=== PATIENT | female | born 2000 | race Caucasian/White ===

== ENCOUNTER 2020-04-19 12:51 | Outpatient (REF) | payer OTHER, SELFPAY ==
[2020-04-20 08:47] LABS: BV Int Neg Control Negative (Negative); BV Int Pos Control Positive (Positive)
[2020-04-20 09:50] LABS: CT PCR NOT DETECTED (Not Detect.); NG PCR NOT DETECTED (Not Detect.)
== END 2020-04-19 12:52 | disposition home or self-care (01) ==
LOC: HO.LAB 12:51
PROVIDERS: Visit Provider Advanced Practice Midwife
DX: Z20.2 Contact with and (suspected) exposure to infections with a predominantly sexual mode of transmission (principal); N89.8 Other specified noninflammatory disorders of vagina; Z30.09 Encounter for other general counseling and advice on contraception; Z30.432 Encounter for removal of intrauterine contraceptive device
CPT/HCPCS: 87480; 87491; 87510; 87591; 87660; 99212

== ENCOUNTER → 2020-08-05 11:48 | Outpatient (BNVA) | payer OTHER, SELFPAY | PROVIDERS: Visit Provider Advanced Practice Midwife | DX: Z30.09 Encounter for other general counseling and advice on contraception (principal); N89.8 Other specified noninflammatory disorders of vagina | CPT/HCPCS: 81025; 99212 ==

== ENCOUNTER 2020-12-16 11:23 | Outpatient (REF) | payer OTHER, SELFPAY | END 2020-12-16 11:24 | disposition home or self-care (01) | LOC: HO.LAB 11:23 | PROVIDERS: Visit Provider Advanced Practice Midwife | DX: Z32.01 Encounter for pregnancy test, result positive (principal) | CPT/HCPCS: 36415; 81025; 84702; 99212 ==

== ENCOUNTER 2020-12-26 11:45 | Outpatient (REF) | payer OTHER, SELFPAY | END 2020-12-26 11:46 | disposition home or self-care (01) | LOC: HO.LAB 11:45 | PROVIDERS: Visit Provider Advanced Practice Midwife | DX: O46.90 Antepartum hemorrhage, unspecified, unspecified trimester (principal) | CPT/HCPCS: 36415; 84702; 86850; 86886; 86900; 86901 ==

== ENCOUNTER 2020-12-26 12:10 | Emergency (ER) | payer OTHER, SELFPAY ==
--- NOTE | ~2020-12-26 | US_ITS ---
EXAMINATION: US OBSTETRICAL ULTRASOUND CLINICAL INFORMATION: Early . Bleeding, cramping. COMPARISON: None. LMP: 10/26/2020. Gestational age by maternal dates is 8 weeks 5 days. Estimated date of delivery by maternal dates is 08/02/2021. TECHNIQUE: Ultrasound of the maternal pelvis is performed using transabdominal transducer. M-mode Doppler is also performed. FINDINGS: There is a single intrauterine gestational sac with visible yolk sac, embryo/fetus, and cardiac activity. There is small subchorionic hemorrhage measuring only 0.6 x 0.9 x 1.8 cm. HR: 163 beats per minute. CRL (crown rump length): 1.8 cm (8 weeks 3 days +/- 4 days). SUKUMAR (estimated date of delivery): 08/04/2021 +/- 4 days. MATERNAL ADNEXA: The right maternal ovary measures 3.6 x 2.0 x 2.5 cm. No right adnexal mass. The left maternal ovary measures 3.2 x 1.4 x 2.7 cm. There is an avascular unilocular anechoic cystic structure left adnexa possibly paraovarian cyst measuring 0.7 x 2.2 cm. Focal fluid left fallopian tube less likely. No maternal pelvic ascites. US/US OB <= 14 weeks fetus IMPRESSION: 1. Single intrauterine gestation with ultrasound gestational age of 8 weeks 3 days +/- 4 days. 2. Estimated date of delivery is 08/04/2021 +/- 4 days. 3. Small subchorionic hemorrhage 0.6 x 0.9 x 1.8 cm. 4. Probable left paraovarian cyst 0.7 x 2.2 cm. Fluid in left fallopian tube less likely. No pelvic ascites.
[2020-12-26 12:33] VITALS: BP 114/69; PULSE 82; RESP 18; TEMP 36.8; O2SAT 100; BMI 26.5
--- NOTE | 2020-12-26 13:05 | ED.PREGNANCY ---
HPI - General Chief complaint: Vaginal Bleeding Stated complaint: 7 week vag bleeding Time Seen by Provider: 12/26/20 13:03 Source: patient and old records reviewed Mode of arrival: ambulatory Limitations: no limitations History of Present Illness HPI Narrative: did have intercourse last night Complaint: vaginal bleeding Onset (ago): hour(s) (this AM) Pain Consistency: intermittent Location: pelvis Severity: mild Quality: Cramping Radiation: pelvis Relieving factors: none Exacerbating factors: none Associated symptoms: denies other symptoms Vaginal bleeding: light (2 pads this AM no clots) OB History - Previous Pregnancies: no complications care: followed by OB Related Data Home Medications Medication Instructions Recorded Confirmed prenat.vits,mani,[id number] 1 tab PO DAILY 12/16/20 12/16/20 Allergies Allergy/AdvReac Type Severity Reaction Status Date / Time No Known Allergies Allergy Verified 12/26/20 12:33 Review of Systems Review of Systems: Constitutional : No Fever, No Chills ENT/Mouth : No sore throat, No Rhinorrhea Eyes: No Eye Pain, No Redness Cardiovascular : No Chest Pain, No SOB Respiratory : No Cough, No Sputum, No Wheezing Gastrointestinal : no Nausea, No Vomiting, No Diarrhea, positive abdominal pain, Genitourinary : positive irregular bleeding, No Dysuria, No Urinary Frequency, positive pelvic pain Musculoskeletal : No Myalgias Skin : No rash Neuro : No Weakness, No Headache Psych : No Anxiety/Panic, No Depression Heme/Lymph: No bruising, No Lymphadenopathy Endocrine : No Polyuria, No Polydipsia All other systems reviewed and are negative PMFSH Past Medical History Attestation statement: The following information was validated with the patient. Medical History No active medical problems Family History Family History Maternal Grandmother Breast CA Social History Social History (Updated 12/26/20 @ 13:19 by Shyann Du DO) Alcohol intake: never Patient Tobacco Use Status: Never used Tobacco Use of substances other than those prescribed or required for medical reasons: No Advance Directives: No Advance Directives Information Provided: Yes Patient : Yes Gender identity: female Physical Exam Vital Signs: Vital Signs: Last Vital Signs Temp 98.2 F 12/26/20 12:33 Pulse 75 12/26/20 13:30 Resp 16 12/26/20 13:30 BP 121/65 12/26/20 13:30 Pulse Ox 99 12/26/20 13:30 Body Mass Index 26.5 Appearance: Alert. Oriented X3. No acute distress. Eyes: Pupils equal, round and reactive to light. ENT: Pharynx normal. Neck: Normal inspection. Neck supple. CVS: Normal heart rate and rhythm. Pulses normal. Respiratory: No respiratory distress. Breath sounds normal. Abdomen: Soft and nontender. : os closed scant darker blood noted Skin: Skin warm and dry. Normal skin color. Normal skin turgor. Extremities: No lower extremity edema. No calf ttp Neuro: Oriented X 3. No motor deficit. No sensory deficit. Course Course Course Narrative: blood type A POS quant increasing bleeding decreased brown now and mostly spotting MDM - OB/Uterine Contractions MDM Narrative Medical decision making narrative: 20 yo female 7 weeks based off LMP seen by OB - c/o 2 pads of blood at this time, no clots or tissues, did have intercourse yesterday - quant and Rh status sent off by OB this AM, will complete with CBC and US - dispo per results and findings. Lab Data Result diagrams: 12/26/20 13:29 12/26/20 13:29 Labs: Lab Results 12/26/20 12/26/20 12/26/20 Range/Units 13:29 13:29 13:29 WBC 8.3 (4.8-10.8) X10*3/uL RBC 4.18 L (4.20-5.50) X10*6/uL Hgb 12.0 (12.0-16.0) g/dl Hct 35.6 L (37-47) % MCV 85.2 (80-98) fL MCH 28.7 (27.0-33.0) pg MCHC 33.7 (31.0-35.0) g/dl RDW 13.1 (11.0-16.0) % Plt Count 312 (160-400) X10*3/uL MPV 10.0 (9.4-12.3) fL Immature Gran % (Auto) 0.2 (0.0-0.4) % Neut % (Auto) 69.6 (45-73) % Lymph % (Auto) 19.4 L (20-40) % [place] % (Auto) 8.9 (2-11) % Eos % (Auto) 1.3 (0-4) % Baso % (Auto) 0.6 (0-2) % Lymph # (Auto) 1.6 (1.2-4.9) X10*3/uL [place] # (Auto) 0.7 (0.1-1.2) X10*3/uL Eos # (Auto) 0.1 (0.0-0.4) X10*3/uL Baso # (Auto) 0.1 (0.0-0.2) X10*3/uL Abs Immat Gran (auto) 0.02 (0.00-0.03) X10*3/uL Absolute Neuts (auto) 5.8 (2.0-8.3) X10*3/uL Absolute Nucleated RBC 0.000 (0.0-0.012) X10*3/uL Nucleated RBC % (auto) 0.0 (0.0-0.2) /100WBC PT 11.9 (9.9-13.0) SEC INR 1.0 (0.9-1.1) APTT 27.1 (24.1-38.0) SEC Sodium 136 (135-145) mmol/L Potassium 3.7 (3.3-5.1) mmol/L Chloride 104 (96-108) mmol/L Carbon Dioxide 22 (22-29) mmol/L Anion Gap 14 (12-20) BUN 12 (9-16) mg/dL Creatinine 0.70 (0.5-1.4) mg/dL Estim Creat Clear Calc 117.6 Estimated GFR > 60 Random Glucose 87 (60-115) mg/dL Calcium 9.7 (8.4-10.2) mg/dL Total Bilirubin 0.4 (0.0-1.0) mg/dL Direct Bilirubin 0.2 (0.0-0.5) mg/dL AST 21 (5-31) U/L ALT 23 (0-31) U/L Alkaline Phosphatase 75 (39-117) U/L Total Protein 7.2 (6.5-8.0) g/dL Albumin 4.2 (3.5-5.0) g/dL Discharge Plan Discharge Clinical Impression: Subchorionic hematoma Patient Disposition: Home, Self-Care Instructions: Subchorionic Hemorrhage (ED) Additional Instructions: return to ED for any worsening symptoms or concerns pelvic rest - no intercourse until symptoms resolve in likely a week follow up with your OB in 2 days for repeat testing and evaulation 1. Single intrauterine gestation with ultrasound gestational age of 8 weeks 3 days +/- 4 days. 2. Estimated date of delivery is 08/04/2021 +/- 4 days. 3. Small subchorionic hemorrhage 0.6 x 0.9 x 1.8 cm. 4. Probable left paraovarian cyst 0.7 x 2.2 cm. Fluid in left fallopian tube less likely. No pelvic ascites. Prescriptions: No Action prenat.vits,mani,[id number] Tablet 1 tab PO DAILY RF: 0 Stand Alone Forms: Work/School Release
[2020-12-26 13:30] VITALS: BP 121/65; PULSE 75; RESP 16; O2SAT 99
--- NOTE | 2020-12-26 13:33 | PC.NURSE ---
Patient is ambulatory to the bathroom to void. Pt changing pad. Pad has a small amount of brown tinge blood on sanitary napkin. Patient has had pad on since 12 noon today.
--- NOTE | 2020-12-26 13:35 | PC.NURSE ---
Doctor notified of bloody discharge characteristics and amount on sanitary napkin. Pt continues to deny pain
[2020-12-26] MEDS: 0.9 % Sodium Chloride 1,000 ML 999 ML IVCONT (13:36)
[2020-12-26 13:41] LABS: MANUAL DIFF FLAG NO
[2020-12-26 13:42] LABS: Basophils Absolute Auto 0.1 X10*3/uL (0.0-0.2); Basophils Percent Auto 0.6 % (0-2); Eosinophils Absolute Auto 0.1 X10*3/uL (0.0-0.4); Eosinophils Percent Auto 1.3 % (0-4); Hematocrit 35.6 % (37-47); Imm Gran Abs Auto 0.02 X10*3/uL (0.00-0.03); Imm Gran Pct Auto 0.2 % (0.0-0.4); Lymphocytes Absolute Auto 1.6 X10*3/uL (1.2-4.9); Lymphocytes Percent Auto 19.4 % (20-40); Mean Corpuscular HGB Conc 33.7 g/dl (31.0-35.0); Mean Corpuscular Hemoglobin 28.7 pg (27.0-33.0); Mean Corpuscular Volume 85.2 fL (80-98); Monocytes Absolute Auto 0.7 X10*3/uL (0.1-1.2); Monocytes Percent Auto 8.9 % (2-11); Neutrophils Absolute Auto 5.8 X10*3/uL (2.0-8.3); Neutrophils Percent Auto 69.6 % (45-73); Platelet Count 312 X10*3/uL (160-400); Red Blood Count 4.18 X10*6/uL (4.20-5.50); Red Cell Distribution Width 13.1 % (11.0-16.0); White Blood Count 8.3 X10*3/uL (4.8-10.8)
[2020-12-26 13:48] LABS: Prothrombin Time 11.9 SEC (9.9-13.0)
[2020-12-26 13:50] LABS: Partial Thromboplastin Time 27.1 SEC (24.1-38.0)
[2020-12-26 14:28] LABS: Alanine Aminotransferase 23 U/L (0-31); Albumin Level 4.2 g/dL (3.5-5.0); Alkaline Phosphatase 75 U/L (39-117); Anion Gap 14 (12-20); Aspartate Amino Transferase 21 U/L (5-31); Bilirubin Direct 0.2 mg/dL (0.0-0.5); Bilirubin Total 0.4 mg/dL (0.0-1.0); Blood Urea Nitrogen 12 mg/dL (9-16); Calcium 9.7 mg/dL (8.4-10.2); Carbon Dioxide 22 mmol/L (22-29); Chloride 104 mmol/L (96-108); Creatinine Clr Calc Pharmacy 117.6; Estimated Glomerular Filt Rate > 60; Glucose Random 87 mg/dL (60-115); Potassium 3.7 mmol/L (3.3-5.1); Sodium 136 mmol/L (135-145); Total Protein 7.2 g/dL (6.5-8.0)
== END 2020-12-26 15:32 | disposition home or self-care (01) ==
PROVIDERS: Emergency Provider Emergency Medicine; PCP Family Medicine
DX: O20.8 Other hemorrhage in early pregnancy (principal); Z3A.01 Less than 8 weeks gestation of pregnancy
CPT/HCPCS: 36415; 76801; 80048; 80076; 85025; 85610; 85730; 96360; 99284

== ENCOUNTER 2020-12-27 | Outpatient (REF) | payer OTHER, SELFPAY | END 2020-12-27 00:01 | disposition home or self-care (01) | LOC: CF | PROVIDERS: Visit Provider Advanced Practice Midwife | DX: O46.8X1 Other antepartum hemorrhage, first trimester (principal); O41.8X10 Other specified disorders of amniotic fluid and membranes, first trimester, not applicable or unspecified; Z3A.00 Weeks of gestation of pregnancy not specified | CPT/HCPCS: 99212 ==

== ENCOUNTER 2020-12-27 12:08 | Outpatient (REF) | payer OTHER, SELFPAY ==
[2020-12-27 15:17] LABS: CT PCR NOT DETECTED (Not Detect.); NG PCR NOT DETECTED (Not Detect.)
[2020-12-28 09:23] LABS: BV Int Neg Control Negative (Negative); BV Int Pos Control Positive (Positive)
== END 2020-12-27 12:09 | disposition home or self-care (01) ==
LOC: HO.LAB 12:08
PROVIDERS: Visit Provider Advanced Practice Midwife
DX: O46.90 Antepartum hemorrhage, unspecified, unspecified trimester (principal)
CPT/HCPCS: 87480; 87491; 87510; 87591; 87660

== ENCOUNTER 2021-01-06 08:28 | Outpatient (REF) | payer OTHER, SELFPAY ==
--- NOTE | ~2021-01-06 | US_ITS ---
EXAMINATION: OBSTETRICAL ULTRASOUND, FIRST TRIMESTER HISTORY: 20-year-old at 10.2 weeks of gestation Vaginal spotting LMP: 10/26/2020 COMPARISON: 12/26/2020 TECHNIQUE: Real time transabdominal imaging with color and M-mode Doppler. FINDINGS: A single, live IUP CRL of 33 mm c/w 10.2wks is noted. Heart Rate: 165 beats per minute. Both maternal ovaries are seen and appear normal. Normal adnexa. Small subchorionic hemorrhage noted. Compared to prior exam, this appears stable. GESTATIONAL AGE: 1. GA from LMP: 10.2 wks 2. GA from AUA: 10.2 wks ESTIMATED DATE OF DELIVERY: 1. SUKUMAR from LMP: 08/02/2021 2. SUKUMAR from AUA: 08/02/2021 US/US OB <= 14 weeks fetus IMPRESSION: 1. A single live IUP 2. CRL consistent with 10.2 weeks confirming her SUKUMAR of 08/02/2021 3. Small resolving subchorionic hematoma This note was generated with a voice recognition program. Please excuse any errors which may have been overlooked during my review of this note. Sometimes these errors may affect the content or meaning of a given sentence.
== END 2021-01-06 08:29 | disposition home or self-care (01) ==
LOC: HO.US 08:28
PROVIDERS: Visit Provider Advanced Practice Midwife
DX: O41.8X10 Other specified disorders of amniotic fluid and membranes, first trimester, not applicable or unspecified (principal); O46.8X1 Other antepartum hemorrhage, first trimester
CPT/HCPCS: 76801

== ENCOUNTER 2021-01-27 10:13 | Outpatient (REF) | payer OTHER, SELFPAY ==
[2021-01-27 11:53] LABS: Hematocrit 37.7 % (37-47); Hemoglobin 12.5 g/dl (12.0-16.0); Mean Corpuscular HGB Conc 33.2 g/dl (31.0-35.0); Mean Corpuscular Hemoglobin 28.5 pg (27.0-33.0); Mean Corpuscular Volume 86.1 fL (80-98); Mean Platelet Volume 9.8 fL (9.4-12.3); Platelet Count 334 X10*3/uL (160-400); Red Blood Count 4.38 X10*6/uL (4.20-5.50); Red Cell Distribution Width 13.3 % (11.0-16.0); White Blood Count 7.9 X10*3/uL (4.8-10.8)
[2021-01-27 13:22] LABS: Amphetamine Screen Urine Not Detected (Not Detect); Barbiturates, Urine Not Detected (Not Detect); Cannabinoid Screen Urine Not Detected (Not Detect); Cocaine Screen Urine Not Detected (Not Detect); Fentanyl, urine Not Detected (Not Detect); Opiate Screen Urine Not Detected (Not Detect); Phencyclidine Screen Urine Not Detected (Not Detect)
[2021-01-27 13:23] LABS: Benzodiazepines Screen Urine Not Detected (Not Detect)
[2021-01-28 10:05] LABS: Syphilis Screen Nonreactive (Nonreactive)
[2021-01-28 21:26] LABS: Rubella IgG Antibody 7.52 Index
[2021-01-30 04:49] LABS: HBsAGNum1 0.14 S/CO (0.00-0.99); Hepatitis B Surface Antigen Negative (Negative); ~HepC Num1 0.09 S/CO (0.00-0.79); ~Hepatitis C Antibody Nonreactive (Nonreactive)
[2021-01-30 05:48] LABS: HIV AB/AG Nonreactive (Nonreactive); HIV Num 1 0.06 S/CO (0.00-0.99)
== END 2021-01-27 10:14 | disposition home or self-care (01) ==
LOC: HO.LAB 10:13
PROVIDERS: PCP Family Medicine; Visit Provider Advanced Practice Midwife
DX: Z32.01 Encounter for pregnancy test, result positive (principal); O26.841 Uterine size-date discrepancy, first trimester; Z3A.13 13 weeks gestation of pregnancy
CPT/HCPCS: 80307; 85027; 86762; 86780; 86787; 86803; 86850; 86900; 86901; 87086; 87340; 87389; 99212

== ENCOUNTER 2021-02-10 13:00 | Outpatient (REF) | payer OTHER, SELFPAY ==
[2021-02-11 11:01] LABS: BV Int Neg Control Negative (Negative); BV Int Pos Control Positive (Positive)
[2021-02-11 11:20] LABS: CT PCR NOT DETECTED (Not Detect.); NG PCR NOT DETECTED (Not Detect.)
== END 2021-02-10 13:01 | disposition home or self-care (01) ==
LOC: HO.LAB 13:00
PROVIDERS: PCP Family Medicine; Visit Provider Advanced Practice Midwife
DX: O41.8X90 Other specified disorders of amniotic fluid and membranes, unspecified trimester, not applicable or unspecified (principal); Z3A.15 15 weeks gestation of pregnancy
CPT/HCPCS: 81003; 87480; 87491; 87510; 87591; 87660; 88142; 99212

== ENCOUNTER 2021-03-03 12:24 | Outpatient (REF) | payer MEDICAID, SELFPAY ==
--- NOTE | ~2021-03-03 | US_ITS ---
EXAMINATION: US OBSTETRICAL CLINICAL INFORMATION: 20-year-old at the 18.2 weeks of gestation Screening for anomaly COMPARISON: 01/06/2021 TECHNIQUE: Real-time transabdominal ultrasound was performed using C1-5 megahertz transducer. FINDINGS: A single, active, fetus is seen in vertex presentation. The placenta is anterior without previa, and the amniotic fluid volume is wnl. MEASUREMENTS: 1. Biparietal Diameter: 4.2 cm; 18.6 wks 2. Occipital Frontal Diameter: 5.1 cm 3. Head Circumference: 15.3 cm; 18.3 wks 4. Abdominal Circumference: 12.3 cm; 18.0 wks 5. Femur Length: 2.8 cm; 18.4 wks 6. Humerus Length: 2.6 cm; 18.1 wks 7. Tibia Length: 2.5 cm; 18.6 wks 8. Ulna Length: 2.3 cm; 18.3 wks 9. Lateral ventricle: 0.7 cm 10. Cerebellum: 1.87 cm; 19.3 wks 11. Cisterna Magna: 0.38 cm 12. Nuchal Fold: 2.63 mm 13. Heart Rate: 144 beats per minute Rt ovary: normal Lt ovary: normal Cervical length 3.7 cm on T/A. GESTATIONAL AGE: 1. Established GA: 18.2 wks 2. GA from [facility]: 18.4 wks ESTIMATED DATE OF DELIVERY: 1. Established SUKUMAR: 08/02/2021 2. SUKUMAR from [facility]: 07/31/2021 ANATOMY: The visualized anatomy includes but not limited to: 1. Cranium: Normal 2. Intracranial anatomy: cavum septum pellucidi, lateral ventricles, choroid plexus, cerebellum, posterior fossa, third and fourth ventricles. 3. face: orbits, lip/palate, profile, nasal bone 4. Heart: four-chamber view of the heart, ventricular septum, foramen ovale, pulmonary vein, left and right outflow tracts, three-vessel view, 3 vessel trachea view, aortic and ductal arches, situs.. 5. Diaphragm: Normal 6. Abdominal wall: Normal 7. Cord Insertion: Normal 8. Spine: Cervical, thoracic, lumbar, sacral. 9. Stomach: Normal size and shape 10. Right Kidney: Normal 11. Left Kidney: Normal 12. 3 vessel cord: Normal 13. Upper extremity: Open hands, fifth digit. 14. Lower extremity: Tibia, fibula, bilateral feet. 15. Bladder: Normal 16. Genitalia: Female, patient not aware US/US OB /maternal detail IMPRESSION: 1. Single, living, intrauterine with appropriate biometry. 2. Normal survey DISCUSSION: I reviewed today's ultrasound findings. We discussed the limitations of ultrasound in diagnosing aneuploidy and other congenital abnormalities. I reviewed the differences between screening test and diagnostic test. Amniocentesis was discussed and declined. She was informed that the baseline incidence of congenital abnormalities is approximately 3-5%. Not all these conditions are diagnosable in utero. RECOMMENDATIONS: 1. Follow-up when necessary. Thank you for allowing me to participate in her care. Total time 20 minutes. The time spent was devoted to counseling the patient about the disease and diagnosis, coordinating care including reviewing her records, pertinent lab data and studies, as well as discussing diagnostic evaluation and workup, plan therapeutic interventions and future disposition of care. This includes any additional research needed to obtain further information in formulating the plan of care of this patient. This note was generated with a voice recognition program. Please excuse any errors which may have been overlooked during my review of this note. Sometimes these errors may affect the content or meaning of a given sentence.
== END 2021-03-03 12:25 | disposition home or self-care (01) ==
LOC: HO.US 12:24
PROVIDERS: PCP Family Medicine; Visit Provider Advanced Practice Midwife
DX: Z36.3 Encounter for antenatal screening for malformations (principal); O41.8X20 Other specified disorders of amniotic fluid and membranes, second trimester, not applicable or unspecified; O46.8X2 Other antepartum hemorrhage, second trimester
CPT/HCPCS: 76811

== ENCOUNTER → 2021-03-17 13:00 | Outpatient (BNVA) | payer OTHER, SELFPAY | PROVIDERS: Visit Provider Advanced Practice Midwife | DX: Z34.82 Encounter for supervision of other normal pregnancy, second trimester (principal); Z3A.20 20 weeks gestation of pregnancy | CPT/HCPCS: 99212 ==

== ENCOUNTER → 2021-04-05 09:53 | Outpatient (BNVA) | payer OTHER, SELFPAY | PROVIDERS: Visit Provider Advanced Practice Midwife | DX: O99.712 Diseases of the skin and subcutaneous tissue complicating pregnancy, second trimester (principal); B37.3 Candidiasis of vulva and vagina; Z3A.23 23 weeks gestation of pregnancy | CPT/HCPCS: 99212 ==

== ENCOUNTER 2021-05-05 09:45 | Outpatient (REF) | payer OTHER, SELFPAY ==
[2021-05-05 13:01] LABS: Hematocrit 34.9 % (37.0-47.0); Hemoglobin 11.3 g/dl (12.0-16.0); Mean Corpuscular HGB Conc 32.4 g/dl (31.0-35.0); Mean Corpuscular Hemoglobin 28.1 pg (27.0-33.0); Mean Corpuscular Volume 86.8 fL (80.0-98.0); Mean Platelet Volume 9.8 fL (9.4-12.3); Platelet Count 366 X10*3/uL (160-400); Red Blood Count 4.02 X10*6/uL (4.20-5.50); Red Cell Distribution Width 13.5 % (11.0-16.0); White Blood Count 11.4 X10*3/uL (4.8-10.8)
[2021-05-05 13:24] LABS: Glucose 1 Hour PP 50gm Dose 140 mg/dL (60-140)
[2021-05-05 13:51] LABS: Syphilis Screen Nonreactive (Nonreactive)
== END 2021-05-05 09:46 | disposition home or self-care (01) ==
LOC: HO.LAB 09:45
PROVIDERS: Visit Provider Advanced Practice Midwife
DX: Z34.92 Encounter for supervision of normal pregnancy, unspecified, second trimester (principal); Z3A.27 27 weeks gestation of pregnancy
CPT/HCPCS: 36415; 81003; 85027; 86780; 99212

== ENCOUNTER → 2021-05-19 13:32 | Outpatient (BNVA) | payer OTHER, SELFPAY | PROVIDERS: Visit Provider Advanced Practice Midwife | DX: Z34.83 Encounter for supervision of other normal pregnancy, third trimester (principal); Z3A.29 29 weeks gestation of pregnancy | CPT/HCPCS: 81003; 99212 ==

== ENCOUNTER 2021-05-26 12:36 | Outpatient (REF) | payer OTHER, SELFPAY ==
[2021-05-26 14:30] LABS: Glucose Fasting 65 mg/dL (60-99)
[2021-05-26 14:53] LABS: Glucose 1 Hour 142 mg/dL
[2021-05-26 15:30] LABS: Glucose 2 Hour 145 mg/dL
[2021-05-26 16:20] LABS: Glucose 3 Hour 133 mg/dL
== END 2021-05-26 12:37 | disposition home or self-care (01) ==
LOC: HO.LAB 12:36
PROVIDERS: Visit Provider Advanced Practice Midwife
DX: R73.09 Other abnormal glucose (principal)
CPT/HCPCS: 36415; 82951

== ENCOUNTER → 2021-06-12 10:54 | Outpatient (BNVA) | payer OTHER, SELFPAY | PROVIDERS: Visit Provider Obstetrics & Gynecology | DX: Z34.83 Encounter for supervision of other normal pregnancy, third trimester (principal); Z3A.32 32 weeks gestation of pregnancy | CPT/HCPCS: 81003; 99212 ==

== ENCOUNTER → 2021-06-29 10:55 | Outpatient (BNVA) | payer OTHER, SELFPAY | PROVIDERS: Visit Provider Obstetrics & Gynecology | DX: Z34.83 Encounter for supervision of other normal pregnancy, third trimester (principal); Z3A.35 35 weeks gestation of pregnancy | CPT/HCPCS: 99212 ==

== ENCOUNTER 2021-07-04 09:34 | Outpatient (REF) | payer OTHER, SELFPAY ==
[2021-07-04 11:09] LABS: Hematocrit 36.3 % (37.0-47.0); Hemoglobin 11.9 g/dl (12.0-16.0); Mean Corpuscular HGB Conc 32.8 g/dl (31.0-35.0); Mean Corpuscular Hemoglobin 27.5 pg (27.0-33.0); Mean Corpuscular Volume 83.8 fL (80.0-98.0); Mean Platelet Volume 9.8 fL (9.4-12.3); Platelet Count 335 X10*3/uL (160-400); Red Blood Count 4.33 X10*6/uL (4.20-5.50); Red Cell Distribution Width 13.9 % (11.0-16.0); White Blood Count 7.7 X10*3/uL (4.8-10.8)
[2021-07-04 12:18] LABS: Alanine Aminotransferase 42 U/L (0-31); Aspartate Amino Transferase 36 U/L (5-31); Blood Urea Nitrogen 11 mg/dL (9-16)
[2021-07-04 13:45] LABS: Creatinine Urine 59.59 mg/dL; Protein/Creatinine Ratio, Ur 0.17 (<0.2); Total Protein Urine Random 10 mg/dL (<12)
[2021-07-09 16:16] LABS: Chendeoxycholic Acid 5.9 umol/L (< OR = 3.9); Cholic Acid 11.6 umol/L (< OR = 2.8); Deoxycholic Acid <0.5 umol/L (< OR = 2.3)
== END 2021-07-04 09:35 | disposition home or self-care (01) ==
LOC: HO.LAB 09:34
PROVIDERS: Visit Provider Advanced Practice Midwife
DX: O99.713 Diseases of the skin and subcutaneous tissue complicating pregnancy, third trimester (principal); O26.893 Other specified pregnancy related conditions, third trimester; R51.9 Headache, unspecified; L29.9 Pruritus, unspecified; M54.50 Low back pain, unspecified
CPT/HCPCS: 36415; 59025; 81003; 82542; 84156; 84450; 84460; 84520; 85027; 99212

== ENCOUNTER 2021-07-07 10:59 | Outpatient (REF) | payer OTHER, SELFPAY ==
--- NOTE | ~2021-07-07 | US_ITS ---
EXAMINATION: OBSTETRICAL ULTRASOUND, Follow up HISTORY: 20-year-old at 36.2 weeks gestation Size date discrepancy Intrahepatic cholestasis of COMPARISON: 03/03/2021 TECHNIQUE: Real time transabdominal imaging with color and M-mode Doppler. PRESENTATION: Vertex PLACENTA LOCATION: Anterior without previa AMNIOTIC FLUID: JUDE 13 cm MEASUREMENTS: 1. Biparietal Diameter: 8.8 cm; 35.5 wks 2. Head Circumference: 32.5 cm; 36.6 wks 3. Abdominal Circumference: 32.0 cm; 36.0 wks 4. Femur Length: 7.2 cm; 36.5 wks 5. Heart Rate: 144 beats per minute WEIGHT: EFW: 2868 grams (6 lbs 5 oz) -- 49 %. BIOPHYSICAL PROFILE: Motion: 2 Tone: 2 Breathin Amniotic Fluid: 2 Total score: 8/8 GESTATIONAL AGE: 1. Established GA: 36.2 wks 2. GA from AUA: 36.3 wks ESTIMATED DATE OF DELIVERY: 1. Established SUKUMAR: 08/02/2021 2. SUKUMAR from AUA: 08/01/2021 US/US OB follow up IMPRESSION: 1. A single active fetus is in vertex presentation 2. Size equals dates 3. Reassuring biophysical profile with normal JUDE She is complaining of increasing pruritus without rash, involving the soles and palms. She reports that her bile acid was elevated. I do not have the report for my inspection. I reviewed the approximate prognosis and management of intrahepatic cholestasis of . Given her symptoms and the bile acid level, ursodiol is indicated. I've informed her that she will be followed with weekly ultrasound and nonstress test. In general, delivery will be at approximately 38 weeks of gestation. Thank you very much for this referral. Total time 30 minutes. The time spent was devoted to counseling the patient about the disease and diagnosis, coordinating care including reviewing her records, pertinent lab data and studies, as well as discussing diagnostic evaluation and workup, plan therapeutic interventions and future disposition of care. This includes any additional research needed to obtain further information in formulating the plan of care of this patient. This note was generated with a voice recognition program. Please excuse any errors which may have been overlooked during my review of this note. Sometimes these errors may affect the content or meaning of a given sentence.
== END 2021-07-07 11:00 | disposition home or self-care (01) ==
LOC: HO.US 10:59
PROVIDERS: Visit Provider Advanced Practice Midwife
DX: O26.613 Liver and biliary tract disorders in pregnancy, third trimester (principal); K83.1 Obstruction of bile duct; O99.713 Diseases of the skin and subcutaneous tissue complicating pregnancy, third trimester; L29.9 Pruritus, unspecified; Z67.10 Type A blood, Rh positive; Z3A.36 36 weeks gestation of pregnancy; Z79.899 Other long term (current) drug therapy
CPT/HCPCS: 76816; 99212

== ENCOUNTER 2021-07-07 12:42 | Outpatient (REF) | payer OTHER, SELFPAY ==
[2021-07-07 17:12] LABS: CT PCR NOT DETECTED (Not Detect.); NG PCR NOT DETECTED (Not Detect.)
== END 2021-07-07 12:43 | disposition home or self-care (01) ==
LOC: HO.LAB 12:42
PROVIDERS: Visit Provider Advanced Practice Midwife
DX: O26.613 Liver and biliary tract disorders in pregnancy, third trimester (principal); K83.1 Obstruction of bile duct; O99.713 Diseases of the skin and subcutaneous tissue complicating pregnancy, third trimester; L29.9 Pruritus, unspecified; Z3A.36 36 weeks gestation of pregnancy
CPT/HCPCS: 87081; 87491; 87591

== ENCOUNTER → 2021-07-13 10:38 | Outpatient (BNVA) | payer OTHER, SELFPAY | PROVIDERS: Visit Provider Obstetrics & Gynecology | DX: O26.613 Liver and biliary tract disorders in pregnancy, third trimester (principal); K83.1 Obstruction of bile duct; Z3A.37 37 weeks gestation of pregnancy | CPT/HCPCS: 99212 ==

== ENCOUNTER 2022-09-27 09:53 | Emergency (ER) | payer MEDICAID, SELFPAY ==
[2022-09-27 10:16] VITALS: BP 106/85; PULSE 95; RESP 18; TEMP 36.9; O2SAT 100; BMI 21.4
[2022-09-27 10:46] LABS: MANUAL DIFF FLAG NO
[2022-09-27 10:47] LABS: Basophils Percent Auto 0.2 % (0-2); Eosinophils Absolute Auto 0.1 X10*3/uL (0.0-0.4); Eosinophils Percent Auto 0.6 % (0-4); Hematocrit 40.4 % (37.0-47.0); Hemoglobin 13.1 g/dl (12.0-16.0); Imm Gran Abs Auto 0.05 X10*3/uL (0.00-0.03); Imm Gran Pct Auto 0.4 % (0.0-0.4); Lymphocytes Absolute Auto 1.3 X10*3/uL (1.2-4.9); Lymphocytes Percent Auto 9.2 % (20-40); Mean Corpuscular HGB Conc 32.4 g/dl (31.0-35.0); Mean Corpuscular Hemoglobin 26.7 pg (27.0-33.0); Mean Corpuscular Volume 82.3 fL (80.0-98.0); Mean Platelet Volume 9.6 fL (9.4-12.3); Monocytes Percent Auto 7.1 % (2-11); Neutrophils Absolute Auto 11.2 x10*3/uL (2.0-8.3); Neutrophils Percent Auto 82.5 % (45-73); Platelet Count 341 X10*3/uL (160-400); Red Blood Count 4.91 X10*6/uL (4.20-5.50); Red Cell Distribution Width 13.8 % (11.0-16.0); White Blood Count 13.6 X10*3/uL (4.8-10.8)
--- NOTE | 2022-09-27 11:11 | PC.NURSE ---
Pt reports upper abd cramping =x 3 months and diarrhea x 1 year (since having child) States worse after ETOH Skin pwd. Speaking full sentences. No facial grimace/guarding.
[2022-09-27 11:12] LABS: Alanine Aminotransferase 31 U/L (0-31); Albumin Level 4.1 g/dL (3.5-5.0); Alkaline Phosphatase 100 U/L (39-117); Anion Gap 10 (12-20); Aspartate Amino Transferase 22 U/L (5-31); Bilirubin Direct 0.2 mg/dL (0.0-0.5); Bilirubin Total 0.5 mg/dL (0.0-1.0); Blood Urea Nitrogen 10 mg/dL (9-16); Calcium 9.2 mg/dL (8.4-10.2); Carbon Dioxide 28 mmol/L (22-29); Chloride 106 mmol/L (96-108); Creatinine Clr Calc Pharmacy 104.4; Estimated Glomerular Filt Rate > 60; Glucose Random 98 mg/dL (60-115); Lipase 12 U/L (8-78); Magnesium 2.1 mg/dL (1.6-2.6); Potassium 3.8 mmol/L (3.3-5.1); Sodium 140 mmol/L (135-145)
[2022-09-27 11:15] LABS: HCG Quantitative < 2 mIU/mL
[2022-09-27 11:42] LABS: Appearance Urine Clear; Color Urine Yellow; Glucose Urine UA Negative (Negative); Leukocyte Esterase Urine Small (1+) (Negative); Nitrite Urine Negative (Negative); PH 6.5 (5.0-9.0); Specific Gravity - Urine 1.025 (1.005-1.025); UMIC TRIGGER UACC YES; Urine Blood Negative (Negative); Urine Ketones Trace mg/dL (Negative); Urine Protein 30 (1+) mg/dL (Neg-Trace)
[2022-09-27 11:43] LABS: UPreg QC Valid YES; Urine Pregnancy NEGATIVE (NEGATIVE)
[2022-09-27 11:51] LABS: Bacteria Urine Trace (None Seen); Hyaline Casts Urine 0-2 /LPF (0-2); RBC Urine 0-2 /HPF (0-2); UACC Culture Trigger YES; WBC Urine 0-5 /HPF (0-5)
[2022-09-27] MEDS: Omeprazole 40 MG CAPSULE.DR PO (12:44)
[2022-09-27] MEDS: Magnesium Hydrox/Alum Hydrox 30 ML ORAL.SUSP PO (12:44)
[2022-09-27 12:46] VITALS: BP 110/73; PULSE 94; RESP 16; O2SAT 96
--- NOTE | 2022-09-27 13:04 | ED.ABDPAIN ---
HPI - Abdominal Pain General Chief Complaint: Abdominal Pain Stated Complaint: 2 week abd pain Time Seen by Provider: 09/27/22 10:31 Source: patient Mode of arrival: ambulatory Limitations: no limitations History of Present Illness HPI narrative: 21-year-old female came in for evaluation of epigastric pain for the past 2 weeks with decreased appetite. Patient describes the pain as localized to the epigastric area, pain is intermittent comes and goes, food make it worse, no clear relieving factor. Pain is associated with nonbloody watery diarrhea. No recent travel, no recent use of antibiotics, no exposure to bad food. No blood in the vomit or in the stool. Related Data Previous Rx's Medication Instructions Recorded prenat.vits,mani,wvd-dopg-joqoi 1 tab PO DAILY #30 tabs 03/08/21 diphenhydramine HCl 25 mg capsule 25 mg PO BEDTIME PRN itching #30 07/04/21 (Benadryl) caps ursodiol 300 mg capsule 300 mg PO BID #30 caps 07/04/21 cetirizine 10 mg tablet (Zyrtec) 10 mg PO DAILY #60 tabs 07/07/21 omeprazole 40 mg capsule,delayed 40 mg PO DAILY #20 caps 09/27/22 release Allergies Allergy/AdvReac Type Severity Reaction Status Date / Time No Known Allergies Allergy Verified 09/27/22 10:20 Review of Systems Review of Systems All other systems are reviewed and are negative Constitutional: Reports as per HPI and Reports no additional constitutional complaints Eyes: Reports as per HPI and Reports no additional eye complaints Reports system reviewed and no additional complaints, except as documented Cardiovascular: Reports as per HPI and Reports no additional cardiovascular complaints Respiratory: Reports as per HPI and Reports no additional respiratory complaints Gastrointestinal: Reports as per HPI and Reports no additional gastrointestinal complaints Genitourinary: Reports no additional female genitourinary complaints Musculoskeletal: Reports no additional musculoskeletal complaints Skin/Breast: Reports system reviewed and no additional complaints, except as docu Psychiatric: Reports no additional psychiatric complaints Endocrine: Reports no additional endocrine complaints Hematologic/Lymphatic: Reports no additional hematologic/lymphatic complaints Allergic/Immunologic: Reports no additional allergic/immunologic complaints Reports system reviewed and no additional complaints, except as documented and Reports Abnormal speech present PMFSH Past Medical History Medical History No active medical problems Family History Family History Maternal Grandmother Breast CA Social History Social History Alcohol intake: never Patient Tobacco Use Status: Never used Tobacco Smoked in Last 30 Days: No Use of substances other than those prescribed or required for medical reasons: No Advance Directives: No Advance Directives Information Provided: No Gender identity: Female Physical Exam ED Vital Signs: Vital Signs - 24 hr 09/27/22 10:16 09/27/22 12:46 Temperature 98.4 F Pulse Rate 95 94 Respiratory Rate 18 16 Blood Pressure 106/85 110/73 Pulse Oximetry 100 96 Oxygen Delivery Method Room Air Room Air BMI result Body Mass Index 21.4 Vital signs have been reviewed as appeared to be correct. Blood pressure normal. Heart rate normal. Respiration rate normal. Temperature normal. Oxygen saturation normal. Appearance: Alert. Oriented X3. No acute distress. Head: Normal external exam. Normocephalic. Atraumatic. No Melo signs noted. No raccoon eyes noted Eyes: PERRLA. EOMI. Conjunctiva and sclera normal. Eyelids normal. ENT: TM's Normal. Pharynx normal. Uvula midline. Moist mucous membranes. No trismus noted. No drooling noted. No muffled voice noted. Neck: Normal inspection. Neck supple. FROM. No adenopathy. Thyroid Normal. No meningeal signs. No neck mass noted. CVS: Normal heart rate and rhythm. Heart sound normal. No murmurs noted. Pulses normal throughout. Respiratory: No respiratory distress. Painless inspiration. Breath sounds normal. No wheezes/rales/rhonchi noted. Chest nontender. No accessory muscle usage noted or decreased air movement noted. Abdomen: Soft , mild epigastric tenderness, no rebound tenderness, no guarding. Bowel sounds normal in all 4 quadrants. No distention noted. No organomegaly noted. No visible injury noted. Back: No CVA tenderness. Full range of motion noted. Skin: Skin warm and dry. Normal skin color. Normal skin turgor. No rashes/lesions/lacerations noted. Extremities: No lower extremity edema. Extremities exhibit normal range of motion. Extremities nontender. Neuro: Oriented X 3. Cranial nerve exam: II-XII are grossly intact No motor deficit. No sensory deficit. Reflexes normal. Course Course Course Narrative: Epigastric pain for 2 weeks, worsening with foods. Physical exam is consistent with gastritis with leukocytosis. Will start the patient on Prilosec and follow-up with internal combustion engineer. Medical Decision Making Differential Diagnosis Differential Diagnoses: The differential diagnosis associated with the presentation includes (Food poisoning, gastritis, gastroenteritis, severe anemia, electrolyte disturbance, dehydration.) Lab Data MDM Lab Attestation statement: I reviewed the patient's lab results. 09/27/22 07:33 09/27/22 10:43 Labs: Lab Results 09/27/22 09/27/22 09/27/22 Range/Units 07:33 10:43 11:36 WBC 13.6 H (4.8-10.8) X10*3/uL RBC 4.91 (4.20-5.50) X10*6/uL Hgb 13.1 (12.0-16.0) g/dl Hct 40.4 (37.0-47.0) % MCV 82.3 (80.0-98.0) fL MCH 26.7 L (27.0-33.0) pg MCHC 32.4 (31.0-35.0) g/dl RDW 13.8 (11.0-16.0) % Plt Count 341 (160-400) X10*3/uL MPV 9.6 (9.4-12.3) fL Immature Gran % (Auto) 0.4 (0.0-0.4) % Neut % (Auto) 82.5 H (45-73) % Lymph % (Auto) 9.2 L (20-40) % Sharkey % (Auto) 7.1 (2-11) % Eos % (Auto) 0.6 (0-4) % Baso % (Auto) 0.2 (0-2) % Lymph # (Auto) 1.3 (1.2-4.9) X10*3/uL [place]key # (Auto) 1.0 (0.1-1.2) X10*3/uL Eos # (Auto) 0.1 (0.0-0.4) X10*3/uL Baso # (Auto) 0.0 (0.0-0.2) X10*3/uL Abs Immat Gran (auto) 0.05 H (0.00-0.03) X10*3/uL Absolute Neuts (auto) 11.2 H (2.0-8.3) x10*3/uL Absolute Nucleated RBC 0.000 (0.0-0.012) X10*3/uL Nucleated RBC % (auto) 0.0 (0.0-0.2) /100WBC Sodium 140 (135-145) mmol/L Potassium 3.8 (3.3-5.1) mmol/L Chloride 106 (96-108) mmol/L Carbon Dioxide 28 (22-29) mmol/L Anion Gap 10 L (12-20) BUN 10 (9-16) mg/dL Creatinine 0.73 (0.5-1.4) mg/dL Estim Creat Clear Calc 104.4 Estimated GFR > 60 Random Glucose 98 (60-115) mg/dL Calcium 9.2 (8.4-10.2) mg/dL Magnesium 2.1 (1.6-2.6) mg/dL Total Bilirubin 0.5 (0.0-1.0) mg/dL Direct Bilirubin 0.2 (0.0-0.5) mg/dL AST 22 (5-31) U/L ALT 31 (0-31) U/L Alkaline Phosphatase 100 (39-117) U/L Total Protein 7.0 (6.5-8.0) g/dL Albumin 4.1 (3.5-5.0) g/dL Lipase 12 (8-78) U/L Beta HCG, Quant < 2 mIU/mL Urine Color Yellow Urine Appearance Clear Urine pH 6.5 (5.0-9.0) Ur Specific [place] 1.025 (1.005-1.025) Urine Protein 30 (1+) H (Neg-Trace) mg/dL Urine Glucose (UA) Negative (Negative) mg/dL Urine Ketones Trace (Negative) mg/dL Urine Blood Negative (Negative) Urine Nitrite Negative (Negative) Ur Leukocyte Esterase Small (1+) H (Negative) Urine RBC 0-2 (0-2) /HPF Urine WBC 0-5 (0-5) /HPF Ur Squamous Epith Cells 6-10 (0-2) /HPF Urine Bacteria Trace (None Seen) Hyaline Casts 0-2 (0-2) /LPF Urine Test (NEGATIVE) 09/27/22 Range/Units 11:36 WBC (4.8-10.8) X10*3/uL RBC (4.20-5.50) X10*6/uL Hgb (12.0-16.0) g/dl Hct (37.0-47.0) % MCV (80.0-98.0) fL MCH (27.0-33.0) pg MCHC (31.0-35.0) g/dl RDW (11.0-16.0) % Plt Count (160-400) X10*3/uL MPV (9.4-12.3) fL Immature Gran % (Auto) (0.0-0.4) % Neut % (Auto) (45-73) % Lymph % (Auto) (20-40) % [place]key % (Auto) (2-11) % Eos % (Auto) (0-4) % Baso % (Auto) (0-2) % Lymph # (Auto) (1.2-4.9) X10*3/uL [place]key # (Auto) (0.1-1.2) X10*3/uL Eos # (Auto) (0.0-0.4) X10*3/uL Baso # (Auto) (0.0-0.2) X10*3/uL Abs Immat Gran (auto) (0.00-0.03) X10*3/uL Absolute Neuts (auto) (2.0-8.3) x10*3/uL Absolute Nucleated RBC (0.0-0.012) X10*3/uL Nucleated RBC % (auto) (0.0-0.2) /100WBC Sodium (135-145) mmol/L Potassium (3.3-5.1) mmol/L Chloride (96-108) mmol/L Carbon Dioxide (22-29) mmol/L Anion Gap (12-20) BUN (9-16) mg/dL Creatinine (0.5-1.4) mg/dL Estim Creat Clear Calc Estimated GFR Random Glucose (60-115) mg/dL Calcium (8.4-10.2) mg/dL Magnesium (1.6-2.6) mg/dL Total Bilirubin (0.0-1.0) mg/dL Direct Bilirubin (0.0-0.5) mg/dL AST (5-31) U/L ALT (0-31) U/L Alkaline Phosphatase (39-117) U/L Total Protein (6.5-8.0) g/dL Albumin (3.5-5.0) g/dL Lipase (8-78) U/L Beta HCG, Quant mIU/mL Urine Color Urine Appearance Urine pH (5.0-9.0) Ur Specific [place] (1.005-1.025) Urine Protein (Neg-Trace) mg/dL Urine Glucose (UA) (Negative) mg/dL Urine Ketones (Negative) mg/dL Urine Blood (Negative) Urine Nitrite (Negative) Ur Leukocyte Esterase (Negative) Urine RBC (0-2) /HPF Urine WBC (0-5) /HPF Ur Squamous Epith Cells (0-2) /HPF Urine Bacteria (None Seen) Hyaline Casts (0-2) /LPF Urine Test NEGATIVE (NEGATIVE) Medications Administered Discontinued Medications Generic Name Dose Route Start Last Admin Trade Name Freq PRN Reason Stop Dose Admin Al Hydroxide/Mg Hydroxide 30 ml 09/27/22 12:22 09/27/22 12:44 Magnesium Hydrox/Alum Hydrox 30 Ml Oral.Susp PO 09/27/22 12:23 30 ml ONCE ONE Administration Omeprazole 40 mg 09/27/22 12:22 09/27/22 12:44 Omeprazole 40 Mg Capsule.Dr PO 09/27/22 12:23 40 mg ONCE ONE Administration Discharge Plan Discharge Clinical Impression: Gastritis Patient Disposition: Home, Self-Care Instructions: Gastritis (ED) Prescriptions: New omeprazole 40 mg capsule,delayed release(DR/EC) 40 mg PO DAILY Qty: 20 0RF No Action prenat.vits,mani,bab-psqw-vkwwo Tablet 1 tab PO DAILY Qty: 30 11RF ursodiol 300 mg capsule 300 mg PO BID Qty: 30 1RF cetirizine [Zyrtec] 10 mg tablet 10 mg PO DAILY Qty: 60 0RF diphenhydramine HCl [Benadryl] 25 mg capsule 25 mg PO BEDTIME PRN (Reason: itching) Qty: 30 1RF Referrals: Jocelyn Baeza MD [Physician] -
== END 2022-09-27 13:20 | disposition home or self-care (01) ==
PROVIDERS: Physician Assistant; Emergency Provider Emergency Medicine
DX: K29.70 Gastritis, unspecified, without bleeding (principal); Z79.899 Other long term (current) drug therapy
CPT/HCPCS: 36415; 80048; 80076; 81001; 81025; 83690; 83735; 84702; 85025; 87086; 99283; 99284

== ENCOUNTER 2022-12-16 00:42 | Emergency (ER) | payer MEDICAID, SELFPAY ==
[2022-12-16 00:48] VITALS: BP 134/90; PULSE 115; RESP 18; TEMP 36.9; O2SAT 98; BMI 22.8
[2022-12-16 01:18] LABS: Hematocrit 44.3 % (37.0-47.0); Hemoglobin 14.4 g/dl (12.0-16.0); Mean Corpuscular HGB Conc 32.5 g/dl (31.0-35.0); Mean Corpuscular Volume 83.1 fL (80.0-98.0); Mean Platelet Volume 9.6 fL (9.4-12.3); Platelet Count 397 X10*3/uL (160-400); Red Blood Count 5.33 X10*6/uL (4.20-5.50); Red Cell Distribution Width 15.6 % (11.0-16.0); White Blood Count 7.4 X10*3/uL (4.8-10.8)
[2022-12-16 01:30] VITALS: BP 105/56; PULSE 111; RESP 18; TEMP 36.8; O2SAT 95
[2022-12-16 01:30] LABS: Appearance Urine Clear; Color Urine Yellow; Glucose Urine UA Negative (Negative); Leukocyte Esterase Urine Negative (Negative); Nitrite Urine Negative (Negative); PH 5.5 (5.0-9.0); Specific Gravity - Urine <= 1.005 (1.005-1.025); Urine Blood Negative (Negative); Urine Ketones Negative (Negative); Urine Protein Trace mg/dL (Neg-Trace)
[2022-12-16 01:31] LABS: UPreg QC Valid YES; Urine Pregnancy NEGATIVE (NEGATIVE)
[2022-12-16 01:32] LABS: Alanine Aminotransferase 16 U/L (0-31); Albumin Level 4.6 g/dL (3.5-5.0); Alkaline Phosphatase 92 U/L (39-117); Anion Gap 14 (12-20); Aspartate Amino Transferase 21 U/L (5-31); Bilirubin Total 0.3 mg/dL (0.0-1.0); Blood Urea Nitrogen 9 mg/dL (9-16); Calcium 9.7 mg/dL (8.4-10.2); Carbon Dioxide 25 mmol/L (22-29); Chloride 110 mmol/L (96-108); Creatinine Clr Calc Pharmacy 85.1; Estimated Glomerular Filt Rate > 60; Ethanol 220 mg/dL; Glucose Random 104 mg/dL (60-115); Potassium 3.6 mmol/L (3.3-5.1); Sodium 145 mmol/L (135-145); Total Protein 8.4 g/dL (6.5-8.0)
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
--- NOTE | 2022-12-16 01:36 | PC.NURSE ---
Patient's sister provided her cell phone number [phone] to call her when patient is ready to be discharged home for a sober ride
[2022-12-16 01:40] LABS: Troponin-I High Sensitivity < 2.7 ng/L (<3.5-17.0)
[2022-12-16 01:46] LABS: Amphetamine Screen Urine Not Detected (Not Detect); Barbiturates, Urine Not Detected (Not Detect); Benzodiazepines Screen Urine Not Detected (Not Detect); Cannabinoid Screen Urine Not Detected (Not Detect); Cocaine Screen Urine Not Detected (Not Detect); Fentanyl, urine Not Detected (Not Detect); Opiate Screen Urine Not Detected (Not Detect); Phencyclidine Screen Urine Not Detected (Not Detect)
[2022-12-16 02:00] VITALS: RESP 16
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
--- NOTE | 2022-12-16 02:34 | PC.NURSE ---
Patient currently sleeping. Noted unlabored respiration and even chest wall rising. Will continue to follow plan of care
[2022-12-16 04:00] VITALS: RESP 16
--- NOTE | 2022-12-16 04:56 | PC.NURSE ---
Patient currently sleeping. Respirations unlabored, chest wall rising evenly. Will continue to follow plan of care
--- NOTE | 2022-12-16 05:28 | PC.NURSE ---
Patient reports she is not suicidal. Per MD patient is ready for discharge
== END 2022-12-16 05:58 | disposition home or self-care (01) ==
PROVIDERS: Emergency Provider Emergency Medicine
DX: F10.14 Alcohol abuse with alcohol-induced mood disorder (principal); F10.129 Alcohol abuse with intoxication, unspecified; Y90.7 Blood alcohol level of 200-239 mg/100 ml; R45.851 Suicidal ideations
CPT/HCPCS: 36415; 80053; 80307; 81003; 81025; 84484; 85027; 99284; 99285